=== PATIENT | female | born 1960 ===

== ENCOUNTER → 2021-03-02 13:51 | Outpatient (BNVA) | payer MEDICARE, MEDICAID, SELFPAY | PROVIDERS: Family Provider Family Medicine; PCP Nurse Practitioner Family; Visit Provider Specialist | DX: G43.909 Migraine, unspecified, not intractable, without status migrainosus (principal); G25.0 Essential tremor | CPT/HCPCS: 99204 ==

== ENCOUNTER → 2021-04-01 10:30 | Outpatient (BNVA) | payer MEDICARE, MEDICAID, SELFPAY | PROVIDERS: Family Provider Family Medicine; PCP Nurse Practitioner Family; Referring Provider Specialist; Visit Provider Anesthesiology Pain Medicine | DX: G89.29 Other chronic pain (principal); M50.00 Cervical disc disorder with myelopathy, unspecified cervical region; M48.062 Spinal stenosis, lumbar region with neurogenic claudication; M47.816 Spondylosis without myelopathy or radiculopathy, lumbar region; M51.16 Intervertebral disc disorders with radiculopathy, lumbar region; M79.604 Pain in right leg; M79.605 Pain in left leg | CPT/HCPCS: 99204 ==

== ENCOUNTER 2021-08-29 11:08 | Outpatient (CLI) | payer MEDICARE, MEDICAID, SELFPAY ==
--- NOTE | 2021-08-29 11:20 | XR_ITS ---
WS: [id number] Exam: XR chest 2V* [id number] Date/Time of Exam: 08/29/2021 11:46 AM Reason For Exam: bilateral chest pain No previous exams. The lungs are hyperinflated and clear. No pleural effusions. Signs of previous CABG surgery. Scoliosi s of the lower thoracic and lumbar spine. Heart size is normal. Small bulge with curvilinear calcific ation seen along the superior mediastinum on the left. This could represent ectasia and/or aneurysmal dilatation of the great vessels. XR/XR chest 2V* [id number] IMPRESSION: 1. Pulmonary hyperinflation which probably indicates obstructive lung disease. 2. No acute infiltrate noted. 3. Small bulge with curvilinear calcification seen along the superior mediastin um on the left. This may represent ectasia or aneurysmal dilatation of the grea t vessels. No previous exams to determine the chronicity of this finding. Contr ast CT scan of the chest might be considered for further workup if thought to b e clinically warranted.
== END 2021-08-29 11:09 | disposition home or self-care (01) ==
LOC: RAD 11:15
PROVIDERS: PCP Nurse Practitioner Family; Visit Provider Internal Medicine Pulmonary Disease
DX: R07.9 Chest pain, unspecified (principal); J44.9 Chronic obstructive pulmonary disease, unspecified; R91.1 Solitary pulmonary nodule
CPT/HCPCS: 71046